=== PATIENT | female | born 1990 | race Caucasian/White ===

== ENCOUNTER 2020-02-22 17:59 | Emergency (ER) | payer OTHER ==
[~2020-02-22] VITALS: Ht 172.7 cm; Wt 77.1 kg
[~2020-02-22 17:59] MED LIST: IBUPROFEN 800800 M1 PO; KEFLEX500 MG PO; NOHOMEMEDICATIONS; PROZAC10 MG PO; TOPAMAX 25 MG T25 M1 PO; ZOLOFT50 MG PO
[2020-02-22] MEDS ORDERED: RIZATRIPTAN5 MG PO (18:18)
[2020-02-22] MEDS ORDERED: BUPROPION XL300 MG PO (18:18)
[2020-02-22] MEDS ORDERED: ZPAK PO (19:17)
[2020-02-22] MEDS ORDERED: VENTOLIN HFA 1818 GM INH (19:17)
[2020-02-22 19:32] VITALS: BP 144/103
== END 2020-02-22 19:33 | disposition home or self-care (01) ==
LOC: M.ERS 17:59
DX: J06.9 Acute upper respiratory infection, unspecified (principal); Z20.828 Contact with and (suspected) exposure to other viral communicable diseases; G43.909 Migraine, unspecified, not intractable, without status migrainosus; Z79.899 Other long term (current) drug therapy